=== PATIENT | male | born 1980 | race Caucasian/White ===

== ENCOUNTER 2018-07-14 14:59 | Emergency (ER) | payer SELFPAY ==
[~2018-07-14] VITALS: Ht 177.8 cm; Wt 88.5 kg
[~2018-07-14 14:59] MED LIST: KETOROLAC TROME10 M1 PO; PERCOCET 5-3251 EACH PO
[2018-07-14 15:05] VITALS: BP 100/58
[2018-07-14] MEDS ORDERED: PERCOCET 5-3251 EACH PO (16:16)
[2018-07-14] MEDS ORDERED: BACTRIM DS TAB1 EACH PO (16:16)
--- NOTE | 2018-07-14 16:18 | ED SKIN/ALLERGY COMPLAINT ---
History of Present Illness General Chief Complaint: Skin Rash/ Abcess Stated Complaint: ? ABCESS UNDER ARM PIT Source: patient Exam Limitations: no limitations Vital Signs & Intake/Output Vital Signs & Intake/Output Vital Signs Date Time Temp Pulse Resp B/P B/P Pulse O2 O2 Flow FiO2 Mean Ox Delivery Rate 07/14 1505 98.5 97 15 100/58 97 Room Air Room Air ED Intake and Output 07/15 0000 07/14 1200 Intake Total 0 Output Total Balance 0 Intake, Oral 0 Patient 195 lb Weight Weight Reported by Patient Measurement Method Allergies Coded Allergies: No Known Allergies (07/14/18) Reconcile Medications Ketorolac Tromethamine 10 MG TABLET 1 TAB PO TID PRN PAIN Oxycodone HCl/Acetaminophen (Percocet 5-325 MG Tablet) 5 MG-325 MG TABLET 1-2 TAB PO Q6P PRN PAIN Oxycodone HCl/Acetaminophen (Percocet 5-325 MG Tablet) 1 EACH TABLET 1 TAB PO BID PRN PAIN Sulfamethoxazole/Trimethoprim (Bactrim Ds Tablet) 800 MG-160 MG TABLET 1 TAB PO BID ABSCESS Triage Note: PT TO ED FOR C/C OF ABCESS TO L AXILLA AREA X 4 DAYS. AFEBRILE IN TRIAGE. Triage Nurses Notes Reviewed? yes Onset: Abrupt Duration: day(s):, constant Timing: recent history Severity: moderate, severe HPI: 38-year-old male comes into the emergency room for further evaluation of swelling and pain in the left armpit. Patient has a history of abscess there before. Patient reports is been going on for the last couple days. Increased swelling and pain. Denies any fever chills. Comes in for further evaluation. (Steve Leahy) Past History Travel History Traveled to [place] past 21 day No Medical History Any Pertinent Medical History? see below for history Neurological: NONE EENT: NONE Cardiovascular: NONE Respiratory: NONE Gastrointestinal: NONE Hepatic: NONE Renal: NONE Musculoskeletal: NONE Psychiatric: NONE Endocrine: NONE Blood Disorders: NONE Cancer(s): NONE Surgical History Surgical History: non-contributory Psychosocial History What is your primary language Turkish Tobacco Use: Current Daily Use Daily Tobacco Use Amount/Type: => 5 Cigarettes daily ETOH Use: occasional use Illicit Drug Use: denies illicit drug use Family History Hx Contributory? No (Steve Leahy) Review of Systems Review of Systems Constitutional: Reports: no symptoms. EENTM: Reports: no symptoms. Respiratory: Reports: no symptoms. Cardiovascular: Reports: no symptoms. GI: Reports: no symptoms. Genitourinary: Reports: no symptoms. Musculoskeletal: Reports: no symptoms. Skin: Reports: see HPI. Neurological/Psychological: Reports: no symptoms. Hematologic/Endocrine: Reports: no symptoms. Immunologic/Allergic: Reports: no symptoms. All Other Systems: Reviewed and Negative (Steve Leahy) Physical Exam Physical Exam General Appearance: well developed/nourished, mild distress Head: atraumatic Eyes: Bilateral: normal appearance. Ears, Nose, Throat: normal ENT inspection, hearing grossly normal Neck: normal inspection Respiratory: no respiratory distress Cardiovascular: regular rate/rhythm Back: normal inspection Extremities: swelling to left armpit, erythema, fluctuance, swelling, Neurologic/Psych: awake, alert, oriented x 3, normal mood/affect Skin: intact Skin Problem Location: see above (Steve Leahy) Progress Differential Diagnosis: abscess/cellulitis, allergic reaction, contact dermatitis Plan of Care: Orders Procedure Date/time Status TRUNK AREA CULTURE 07/14 1618 Active Microbiology 07/14 164 TRUNK: Culture & Sensitivity - RES 07/14 1645 TRUNK: Gram Stain - RES (Steve Leahy) Departure Departure Disposition: HOME OR SELF CARE Condition: Stable Clinical Impression Primary Impression: Abscess of left axilla Referrals: Patient Has No Primary Care Dr (PCP/Family) Additional Instructions: Return in 2 days for packing removal. Take Bactrim and Percocet as prescribed. Return if any other concerns worsening symptoms. Please go over all results of today's visit with your primary care doctor. Contact your primary care doctor to let them know you were here in the emergency room. There may be nonspecific findings which may not be related to your visit today here in the emergency room but may require further evaluation and chronic monitoring by your primary care doctor. If you had a laceration today the chance of foreign body always remains. You should follow-up with your primary care doctor for recheck in 3-5 days for a wound check. If you had an x-ray done there is a chance that a fracture could have been missed on initial read and you should follow-up with your primary care doctor for repeat x-rays if symptoms persist. If your blood pressure was elevated here in the emergency room please have rechecked by [facility] primary care doctor within the next 48. If you were prescribed a narcotic here in the emergency room or any type of controlled substances you're not allowed to drive while taking this medication or operate any type of heavy machinery. Narcotics can make you feel lightheaded dizziness nausea and can cause constipation. You may need to chart picker a stool softener. Thank you for choosing [facility] emergency room. Please return to the emergency room immediately if you have any other concerns worsening of symptoms. Departure Forms: Customer Survey General Discharge Information Prescriptions: Current Visit Scripts Sulfamethoxazole/Trimethoprim (Bactrim Ds Tablet) 1 TAB PO BID #20 TAB Oxycodone HCl/Acetaminophen (Percocet 5-325 MG Tablet) 1-2 TAB PO Q6P PRN PAIN #15 TAB (Steve Leahy) PA/QI SPECIALIST Co-Sign Statement Statement: ED Attending supervision documentation- [] I saw and evaluated the patient. I have also reviewed all the pertinent lab results and diagnostic results. I agree with the findings and the plan of care as documented in the PA's/QI SPECIALIST's documentation. [x] I have reviewed the ED Record and agree with the PA's/QI SPECIALIST's documentation. [] Additions or exceptions (if any) to the PAs/QI SPECIALIST's note and plan are summarized below: [] (Yvonne GARCIA,[facility]) Procedures Incision and Drainage Site: left axilla Blade Size: 11 I & D Procedure: Yes: betadine prep, sterile drapes applied, sterile dressing applied, wick placed. Progress: 1% lidocaine, 8 mL injected, suction use, approximately 8 mL's of purulent discharge (Steve Leahy)
== END 2018-07-14 16:44 ==
LOC: ERH 14:59
DX: L02.412 Cutaneous abscess of left axilla (principal)
CPT/HCPCS: 87070; J2001

== ENCOUNTER 2018-07-16 16:52 | Emergency (ER) | payer SELFPAY ==
[~2018-07-16 16:52] MED LIST changes: +BACTRIM DS TAB1 EACH PO
[2018-07-16 17:00] VITALS: BP 117/75
[2018-07-16] MEDS ORDERED: AMOXICILLIN875 M1 PO (17:12)
--- NOTE | 2018-07-16 17:12 | ED SKIN/ALLERGY COMPLAINT ---
History of Present Illness General Chief Complaint: General Adult Stated Complaint: PT LF ARM HAS PACKING THAT SHOULD BE REMOVE Source: patient, old records Exam Limitations: no limitations Vital Signs & Intake/Output Vital Signs & Intake/Output Vital Signs Date Time Temp Pulse Resp B/P B/P Pulse O2 O2 Flow FiO2 Mean Ox Delivery Rate 07/16 1700 97.7 76 18 117/75 98 Room Air Allergies Coded Allergies: No Known Allergies (07/14/18) Reconcile Medications Amoxicillin 875 MG TABLET 1 TAB PO BID abscess Ketorolac Tromethamine 10 MG TABLET 1 TAB PO TID PRN PAIN Oxycodone HCl/Acetaminophen (Percocet 5-325 MG Tablet) 5 MG-325 MG TABLET 1-2 TAB PO Q6P PRN PAIN Oxycodone HCl/Acetaminophen (Percocet 5-325 MG Tablet) 1 EACH TABLET 1 TAB PO BID PRN PAIN Sulfamethoxazole/Trimethoprim (Bactrim Ds Tablet) 800 MG-160 MG TABLET 1 TAB PO BID ABSCESS Triage Note: 38M HERE FOR WOUND RECHECK AND PACKING REMOVAL TO LEFT AXILLA, PLACED THURSDAY IN ED. REPORTS IT IS SIGNIFICANTLY IMPROVED. AFEBRILE. DENIES FEVERS/CHILLS. DRAINAGE IS SANGUINOUS AND SCANT. TAKING ANTIBIOTIC PRESCRIBED Triage Nurses Notes Reviewed? yes Onset: Gradual Duration: day(s): Timing: recent history Severity: moderate HPI: 38-year-old male presents to emergency department requesting abscess check. Patient had abscess I&D performed here 2 days ago. Patient had packing material placed at that time and was instructed to return in 2 days for removal of packing. He has been taking Bactrim antibiotics as prescribed. Patient states that since initial drainage his redness and pain have significantly improved, the area is still swollen however he no longer has pain. Denies fevers, malaise. (Vickie Rodriguez) Past History Travel History Traveled to [place] past 21 day No Medical History Any Pertinent Medical History? none Neurological: NONE EENT: NONE Cardiovascular: NONE Respiratory: NONE Gastrointestinal: NONE Hepatic: NONE Renal: NONE Musculoskeletal: NONE Psychiatric: NONE Endocrine: NONE Blood Disorders: NONE Cancer(s): NONE Surgical History Surgical History: non-contributory Psychosocial History What is your primary language Serbian Tobacco Use: Current Daily Use Daily Tobacco Use Amount/Type: => 5 Cigarettes daily Family History Hx Contributory? No (Vickie Rodriguez) Review of Systems Review of Systems Constitutional: Reports: no symptoms. EENTM: Reports: no symptoms. Respiratory: Reports: no symptoms. Cardiovascular: Reports: no symptoms. GI: Reports: no symptoms. Genitourinary: Reports: no symptoms. Musculoskeletal: Reports: no symptoms. Skin: Reports: see HPI. Neurological/Psychological: Reports: no symptoms. Hematologic/Endocrine: Reports: no symptoms. Immunologic/Allergic: Reports: no symptoms. All Other Systems: Reviewed and Negative (Vickie Rodriguez) Physical Exam Physical Exam General Appearance: well developed/nourished, no apparent distress, alert, awake Head: atraumatic, normal appearance Eyes: Bilateral: normal appearance. Ears, Nose, Throat: hearing grossly normal Neck: normal inspection, supple, full range of motion Respiratory: no respiratory distress Back: normal inspection, normal range of motion Extremities: half dollar sized area of swelling with packing material in place to left axilla, nontender, no erythema Neurologic/Psych: awake, alert, oriented x 3 Skin: normal color (Vickie Rodriguez) Progress Differential Diagnosis: abscess/cellulitis, contact dermatitis, urticaria, wound check Plan of Care: Packing material removed from abscess. Upon palpation no further purulent material drained from the wound. Patient has no erythema or fluctuance at this time, repeat I&D is not necessary at this time. Patient to begin warm compresses at least twice daily, he was educated on hygiene. He will also continue Bactrim antibiotics. Culture was reviewed, gram-positive cocci in pairs detected, likely strep, we will add on amoxicillin. Patient agrees with the plan of care. He will Return with worsening symptoms. (Vickie Rodriguez) Departure Departure Disposition: HOME OR SELF CARE Condition: Stable Clinical Impression Primary Impression: Abscess re-check Referrals: Patient Has No Primary Care Dr (PCP/Family) Additional Instructions: Continue Bactrim antibiotics. Also begin amoxicillin antibiotics. Apply warm compresses at least twice daily and keep the area clean and dry. Return if if worsening symptoms or concerns. Please note that there might be incidental findings in your evaluation that are unrelated to the current emergency department visit. Please notify your primary care doctor about this emergency department visit in order to obtain and review all of the testing performed so that these incidental findings can be monitored as needed. If you had an x-ray performed, please understand that some fractures may not be seen on the initial set of x-rays. If your symptoms persist you might need a repeat set of x-rays to check for such a fracture. If you had a laceration evaluated, please understand that foreign bodies such as glass or wood may not be visible to the naked eye or on plain x-rays. If the wound becomes red, swollen, increasingly more painful or if there is any drainage from the wound, please have it reevaluated by a physician for the possibility of a retained foreign body. If you're unable to follow up as outlined in the discharge instructions please return to the emergency department. Thank you for choosing the [facility] Emergency Department for your care. It was a pleasure to serve you today. Departure Forms: Customer Survey General Discharge Information Prescriptions: Current Visit Scripts Amoxicillin 1 TAB PO BID #20 TAB (Floresita GUNDERSON,Vickie Pruett) PA/MINE LABORER Co-Sign Statement Statement: ED Attending supervision documentation- [] I saw and evaluated the patient. I have also reviewed all the pertinent lab results and diagnostic results. I agree with the findings and the plan of care as documented in the PA's/MINE LABORER's documentation. [x] I have reviewed the ED Record and agree with the PA's/MINE LABORER's documentation. [] Additions or exceptions (if any) to the PAs/MINE LABORER's note and plan are summarized below: [] (Yvonne GARCIA,[facility])
== END 2018-07-16 17:24 ==
LOC: ERH 16:52
DX: Z48.00 Encounter for change or removal of nonsurgical wound dressing (principal)